=== PATIENT | female | born 1945 | race Caucasian/White ===

== ENCOUNTER 2020-09-26 13:08 | Emergency (ER) | payer MEDICARE ==
[2020-09-26 13:46] LABS: HEMOGLOBIN 12.6 gm/dl (12.3-15.3); RED BLOOD COUNT 4.25 M/UL (4.00-5.10); WHITE BLOOD COUNT 8.7 K/UL (4.5-11.0)
[2020-09-26 14:16] LABS: BUN/CREATININE RATIO 17 (0-10)
== END 2020-09-26 18:27 | disposition home or self-care (01) ==
LOC: ER1 13:08
PROVIDERS: Emergency Medicine
DX: R07.89 Other chest pain (principal); I10 Essential (primary) hypertension
CPT/HCPCS: 71045; 80053; 82550; 82553; 83874; 84484; 85025; 93005; 96365; 99285